=== PATIENT | male | born 1960 | race Caucasian/White ===

== ENCOUNTER 2022-10-07 07:51 | Emergency (ER) | payer SELFPAY ==
[2022-10-07] VITALS (8 sets, daily range): BP systolic 122–130; BP diastolic 66–81; PULSE 59–88; RESP 18; TEMP 35.9; O2SAT 97–100; BMI 23.6
--- NOTE | 2022-10-07 08:00 | ED.WEAKNESS ---
HPI - Weakness General Time Seen by Provider: 08:00 Date Seen: 10/07/22 Chief complaint: Weakness Stated complaint: pain all over Time Seen by Provider: 10/07/22 08:00 Source: patient and RN notes reviewed Mode of arrival: ambulatory Limitations: no limitations History of Present Illness HPI Narrative: Andrea is a very pleasant gentleman previously healthy who comes to the emergency room for evaluation regarding weakness and body pain. Patient had the onset of some left arm discomfort and weakness approximately a month ago. Since that time the weakness and discomfort has progressed to include his right arm and his legs. He notes that he can barely lift his arms up. 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 He can move his feet and ankles fine but has difficulty lifting his legs up. He has not had fevers chills or chills. He denies loss of appetite that is new. He states he takes Ritalin so he does not eat a lot. Even with this he denies any weight loss. He notes that he has discomfort at the base of his neck and upper thoracic spine. He denies chest pain difficulty breathing vomiting abdominal pain nausea. He has not lost control of his power or bladder. His pain is definitely worse when he tries to move. He has not taken anything for discomfort at this time. He has a sister with MS. He does admit to drinking 3-5 alcoholic drinks every day. He does not have a history of withdrawal if he does skip a day. He does not have a history of alcohol seizures. Denies any drug use. Does smoke cigarettes daily. Patient denies any recent trauma. Denies visual changes or double vision. Patient denies any symptoms of jaw claudication visual changes or headache. Related Data Home Medications Medication Instructions Recorded Confirmed methylphenidate HCl 20 mg tablet 20 mg PO 3XD 10/07/22 10/07/22 Previous Rx's Medication Instructions Recorded omeprazole 20 mg capsule,delayed 20 mg PO DAILY #30 caps 10/07/22 release prednisolone 5 mg tablet 15 mg (3 x 5 mg) PO DAILY #90 tabs 10/07/22 Allergies Allergy/AdvReac Type Severity Reaction Status Date / Time No Known Drug Allergies Allergy Verified 10/07/22 13:38 Review of Systems Status of ROS: Reports: 10 or more systems reviewed and unremarkable except as noted in History and below Narrative: Patient notes he is outside but has not noticed any tick bites. Const: Reports: fatigue; Denies: fever or chills Eyes: Denies: change in vision or blurry vision ENMT: Reports: neck pain; Denies: difficulty swallowing, hoarseness or nasal discharge Cardio: Denies: chest pain, palpitations, swelling of feet/ankles, lightheadedness or shortness of breath with exertion Resp: Denies: shortness of breath or cough GI: Denies: abdominal pain, nausea, vomiting, diarrhea or difficulty swallowing : Denies: painful urination, urinary frequency, urinary urgency or blood in urine Musculo: Reports: back pain, neck pain, extremity pain, joint pain, limited range of motion and muscle weakness; Denies: extremity swelling or joint swelling Integ/Breast: Denies: rash or redness Neuro: Reports: weakness in extremities; Denies: headache, numbness in extremities, dizziness or confusion Endo: Reports: fatigue Exam Narrative: Exam Narrative: Andrea is alert and oriented. EOM is full. Face symmetrical. Neck is supple. Palpation down the cervical spine yields no tenderness. Heart with a regular rate and rhythm. Lungs are clear bilaterally. Abdomen is soft nontender. Patient has difficulty with abduction of both upper extremities past 45?. He is weak with biceps flexion and extension. His security system analyst strength is improved in terms of strength verses proximal musculature. But still only 4/5. Lower extremities show full strength at the ankles but hip flexion is uncomfortable and 4/5 bilaterally. Const: Vital Signs, click to edit/add: Vital Signs - 24 hr 10/07/22 07:57 10/07/22 09:13 10/07/22 09:15 Temperature 96.7 F L Pulse Rate 76 73 Pulse Rate [Right Pulse Oximeter] 59 L Respiratory Rate 18 Blood Pressure 122/75 Blood Pressure [Ri ght Upper Arm] 123/79 Pulse Oximetry 100 98 100 Oxygen Delivery Me thod Room Air 10/07/22 09:39 10/07/22 09:41 10/07/22 09:45 Temperature Pulse Rate 82 70 78 Pulse Rate [Right Pulse Oximeter] Respiratory Rate Blood Pressure 126/81 Blood Pressure [Ri ght Upper Arm] Pulse Oximetry 97 98 98 Oxygen Delivery Me thod 10/07/22 10:00 10/07/22 10:02 Temperature Pulse Rate 88 87 Pulse Rate [Right Pulse Oximeter] Respiratory Rate Blood Pressure 130/66 Blood Pressure [Ri ght Upper Arm] Pulse Oximetry 100 98 Oxygen Delivery Me thod Documenting provider has reviewed patient's vital signs: yes Course Course Hospital Course: Differential diagnosis includes but is not limited to polymyalgia rheumatica, MS, vitamin deficiency, alcoholic induced neuropathy, MS, myositis, COVID, spinal cord compression or other viral illness. Will place IV give 1 L of normal saline. If creatinine acceptable will also use Toradol for discomfort. Will check CBC, comprehensive, CRP, sed rate, alcohol, thigh min, B12, urinalysis, drug screen. Will check head CT, cervical spine CT, chest x-ray, EKG. Will give multivitamin, thiamin, folic acid at this time given alcohol use. Initial pain control will be morphine 2 mg, Ativan 0.5 mg. Reevaluation(s) Reevaluation #1: Patient noted to have normal B12. His CRP is elevated at 4.4 and sed rate is 33. Initial chest x-ray is noted to have an irregularity over the 3rd rib. A CT of the chest is suggested and this is ordered. Patient is given thiamin, folic acid, multivitamin as well as dexamethasone 10 mg IV. 1 L of normal saline is also infused. Head and cervical spine CTs reassuring at this time. Reevaluation #2: Patient has been resting comfortably. Fortunately CT of the chest shows no abnormalities and the area of concern on initial x-ray is fibrosis. Vital Signs Vital signs: Initial Vital Signs Temperature 96.7 F L 10/07/22 07:57 Temperature Source Temporal Artery Scan 10/07/22 07:57 Pulse Rate 59 L 10/07/22 07:57 Respiratory Rate 18 10/07/22 07:57 Blood Pressure 123/79 10/07/22 07:57 Blood Pressure Mean 93 10/07/22 07:57 Blood Pressure Position Sitting 10/07/22 07:57 Pulse Oximetry 100 10/07/22 07:57 Oxygen Delivery Method Room Air 10/07/22 07:57 Vital Signs Temperature 96.7 F L 10/07/22 07:57 Pulse Rate 59 L 10/07/22 07:57 Respiratory Rate 18 10/07/22 07:57 Blood Pressure 123/79 10/07/22 07:57 Pulse Oximetry 100 10/07/22 07:57 Oxygen Delivery Method Room Air 10/07/22 07:57 Temperature 96.7 F L 10/07/22 07:57 Pulse Rate 87 10/07/22 10:02 Respiratory Rate 18 10/07/22 07:57 Blood Pressure 130/66 10/07/22 10:02 Pulse Oximetry 98 10/07/22 10:02 Oxygen Delivery Method Room Air 10/07/22 07:57 MDM - Weakness MDM Narrative Medical decision making narrative: 1. Polymyalgia rheumatica-patient has had pain worse in the morning when he 1st wakes up initially with his left shoulder and his right shoulder and now his groin and thighs. His symptoms are classic of polymyalgia rheumatica and certainly his CRP is elevated. He has no headache or visual changes or pain over his temporal artery. He is remarkably improved after being treated with dexamethasone. He was allowed to rest here and now he is able to move quite well. I had really not expected him to have such a remarkable recovery. He will continue on prednisone 15 mg daily per the up-to-date guidelines and follow-up with a physician at the [facility] which has been scheduled for him. During that time he is on prednisone would ask that he also start omeprazole 20 mg daily for stomach protection. 2. Daily alcohol use-patient has a normal B12 and is thigh min is pending as certainly 1 must consider an alcohol induced myositis. CK, vitamin-D, TSH had been ordered and unfortunately patient had departed and I was informed that there was not enough blood. Patient is instructed to decrease daily alcohol use and abstain if possible. He was given multivitamin, thigh min, folic acid in the ED. 3. Disposition-home at this time. Return for worsening symptoms. Patient was able to walk without difficulty move his arms. He is very happy that he is feeling better. Medical Records Attestation: I reviewed the patient's medical records. Lab Data Attestation: I reviewed the patient's lab results. Labs: Lab Results 10/07/22 10/07/22 10/07/22 Range/Units 08:34 13:36 Unknown WBC 11.02 H (4.50-11.00) K/uL RBC 4.25 L (4.30-5.90) m/uL Hgb 13.0 L (13.5-17.5) gm/dL Hct 39.5 (37.0-53.0) % MCV 93 (80-100) fL MCH 31 (26-34) pg MCHC 33 (32-36) gm/dL RDW Coeff of Noe 13.5 (11.5-15.5) % Plt Count 397 (140-440) K/uL Neut % (Auto) 76.1 H (42.0-72.0) % Lymph % (Auto) 15.5 L (20-44) % [place] % (Auto) 6.7 (0.0-11.0) % Eos % (Auto) 1.1 (0.0-7.0) % Baso % (Auto) 0.4 (0.0-3.0) % Neut # (Auto) 8.40 H (1.7-7.0) K/uL Lymph # (Auto) 1.70 (0.90-2.90) K/uL [place] # (Auto) 0.70 (0.00-0.90) K/UL Eos # (Auto) 0.10 (0.00-0.50) K/uL Baso # (Auto) 0.00 (0.00-0.30) K/uL Abs Immat Gran (auto) 0.00 (0.00-0.30) K/uL Imm/Tot Granulo (auto) 0.2 % ESR 33 H (2-15) mm/hr Sodium 139 (135-149) mmol/L Potassium 4.2 (3.6-5.1) mmol/L Chloride 105 (96-114) mmol/L Carbon Dioxide 25 (20-32) mmol/L Anion Gap 9 (7-15) mEq/L BUN 13 (7-30) mg/dL Creatinine 0.8 (0.5-1.5) mg/dL Estimated Creat Clear 77.57 Estimated GFR 101 ml/min Glucose 112 (60-115) mg/dL Total Bilirubin 0.4 (0.1-1.5) mg/dL AST 25 (12-35) U/L ALT 18 (4-50) U/L Alkaline Phosphatase 112 (40-150) U/L C-Reactive Protein 4.4 H (0.5-1.0) mg/dL Total Protein 7.2 (6.0-8.3) g/dL Albumin 4.0 (3.3-5.0) g/dL Vitamin B12 478 (243-894) pg/mL Urine Color Yellow (Yellow) Urine Appearance Slightly Cloudy A (Clear) Urine pH 8.5 (5.0-8.5) Ur Specific [place] 1.015 (1.000-1.030) Urine Protein Negative (Negative) Urine Glucose (UA) Negative (Negative) Urine Ketones 2+ A (Negative) Urine Blood Trace-intact A (Negative) Urine Nitrite Negative (Negative) Urine Bilirubin Negative (Negative) Urine Urobilinogen 1.0 (0.2-1.0) Ur Leukocyte Esterase Negative (Negative) Urine RBC 0-2 (0-2) Urine WBC 0-2 (0-5) Ur Squamous Epith Cells None (None-Few) Amorphous Sediment Many A (None) Urine Bacteria Few A (None) Urine Opiates Screen POSITIVE A (Negative) Ur Oxycodone Screen Negative (Negative) Urine Methadone Screen Negative (Negative) Ur Propoxyphene Screen Negative (Negative) Ur Barbiturates Screen Negative (Negative) U Tricyclic Antidepress Negative (Negative) Ur Phencyclidine Scrn Negative (Negative) Ur Amphetamines Screen Negative (Negative) U Methamphetamines Scrn Negative (Negative) U Benzodiazepines Scrn Negative (Negative) Urine Cocaine Screen Negative (Negative) U Marijuana (THC) Screen POSITIVE A (Negative) Ur Drug Screen Comment See Note Ethyl Alcohol < 0.01 L (0.01-0.03) % SARS-CoV-2 (PCR) Negative SARS-CoV-2 (Negative) Lab Acknowledgement Test Added Imaging Data Chest x-ray: Attestation: I have reviewed the pertinent imaging results. My impression: I do not note a widened mediastinum. Radiologist's impression: Right perihilar opacity and nonspecific irregular opacity superimposed upon the right anterior 3rd intercostal space in the peripheral right midlung, undetermined etiology/clinical significance. A nonemergent chest CT is recommended for further characterization of these nonspecific findings. CT scan - head: Attestation: I have reviewed the pertinent imaging results. My impression: No acute findings Radiologist's impression: here is no intra-axial or extra-axial fluid collection. There is no mass effect or midline shift. There is age-related cortical atrophy with mild sulcal widening and ex vacuo dilatation of the lateral ventricles. There are chronic small vessel disease changes in the subcortical and periventricular white matter without lost chan-white differentiation. The orbits and their contents are grossly within normal limits. The bony calvarium is grossly intact. The paranasal sinuses are clear. The mastoid air cells are well aerated. Impression: 1. Age-related changes of the brain without acute intracranial abnormality. Cervical spine CT: Attestation: I have reviewed the pertinent imaging results. My impression: Multilevel spondylosis without any evidence of lytic lesion. Radiologist's impression: The cervical vertebral body heights are grossly maintained. There is straightening of the normal cervical lordosis with mild anterolisthesis of C3 on C4. There is no displaced fracture or dislocation. There is extensive degenerative disc disease with disc height loss and marginal osteophyte formation at multiple levels with demonstration of large disc extrusions at the C4-5, C5-6 and C6-7 levels. There is [id number] spinal canal narrowing at these levels. There is moderate uncovertebral joint disease with moderate neural foraminal narrowing bilaterally. There is moderate to severe facet arthropathy. There is mild biapical pleural thickening. Impression: Moderate multilevel degenerative disc disease worst at the C4-5 through C6-C7 levels as described above. No evidence of displaced fracture. If there is concern for spinal cord pathology, underlying spinal canal and/or neural foraminal integrity, follow-up with MRI. CT scan - chest: Attestation: I have reviewed the pertinent imaging results. Radiologist's impression: Lungs and pleura: The findings described in the report of the earlier chest radiograph correspond to anterior segmental right upper lobe pleural based reticular opacities consistent with nonspecific minor fibrosis, not considered clinically significant. Similar findings consist with nonspecific minor fibrosis are noted as subpleural curvilinear band opacities in the dependent lower lobes bilaterally. No pleural effusions, pleural thickening, or pneumothorax. Heart and vasculature: Heart size is normal. Thoracic aorta and pulmonary artery are normal in caliber.An apparent filling defect within the proximal superior segmental left lower lobe pulmonary artery on the axial series (series 2; images 53, 54) is due to partial volume averaging (artifact). There is no filling defect in this vessel on the coronal reformatted series (see series 4; images 49-55). Lymph nodes/mediastinum: Calcified right hilar, subcarinal and right upper lobar nonenlarged lymph nodes are consistent with the sequelae of prior granulomatous disease. Chest wall: No masses. Upper abdomen: No acute findings. Hepatic and splenic calcified granulomas are noted distally. Focal fat is noted in the left hepatic lobe adjacent to the intersegmental fissure. Bones: Unremarkable for age. IMPRESSION: The pulmonary findings in the peripheral right midlung on the earlier chest radiograph performed a correspond to nonspecific minor fibrosis in the anterior segment of the right upper lobe, not considered clinically significant. No other acute/significant incidental findings. ECG Data Attestation: I personally reviewed and interpreted this ECG as follows: ECG interpretation date: 10/07/22 Interpretation: EKG by my read shows sinus rhythm at a rate of 63. No acute ST or T-wave changes are noted. Normal QT and CA intervals Discharge Plan Discharge Clinical Impression: Polymyalgia rheumatica, Proximal muscle weakness, Alcohol abuse, daily use Patient Disposition: Home, Self-Care Condition: Improved Instructions: Polymyalgia Rheumatica (ED) Additional Instructions: We will be treating you for 2 different things today. First we will continue steroids for treatment of presumed polymyalgia rheumatica. The prescription for this medicine was sent to your pharmacy. I would also like you to be on omeprazole for stomach protection. Limit or abstain from alcohol use. Return to the emergency room for recurrence or worsening symptoms. Follow up appointment is scheduled at the [facility] on 10/30 with a 3:15pm appointment time. If you have any questions or need to reschedule, please call [phone]. [facility] [address] [place] [address] Prescriptions: New omeprazole 20 mg capsule,delayed release(DR/EC) 20 mg PO DAILY Qty: 30 0RF prednisolone 5 mg tablet 15 mg PO DAILY Qty: 90 0RF No Action methylphenidate HCl 20 mg tablet 20 mg PO 3XD Stand Alone Forms: [employer] Info Instructions
--- NOTE | 2022-10-07 08:12 | CRLHL7_ITS ---
For Patients: As a result of the Century Cures Act, medical imaging exams and procedure reports are released immediately into your electronic medical record. You may view this report before your referring provider. If you have questions, please contact your health care provider. Indication: Over Pain, proximal muscle weakness Technique: Volumetric multidetector CT images of the cervical spine were obtained without the administration of IV contrast. Comparison: None available. Findings: The cervical vertebral body heights are grossly maintained. There is straightening of the normal cervical lordosis with mild anterolisthesis of C3 on C4. There is no displaced fracture or dislocation. There is extensive degenerative disc disease with disc height loss and marginal osteophyte formation at multiple levels with demonstration of large disc extrusions at the C4-5, C5-6 and C6-7 levels. There is [id number] spinal canal narrowing at these levels. There is moderate uncovertebral joint disease with moderate neural foraminal narrowing bilaterally. There is moderate to severe facet arthropathy. There is mild biapical pleural thickening. Impression: Moderate multilevel degenerative disc disease worst at the C4-5 through C6-C7 levels as described above. No evidence of displaced fracture. If there is concern for spinal cord pathology, underlying spinal canal and/or neural foraminal integrity, follow-up with MRI. Please note that all CT scans at this facility use dose modulation, iterative reconstruction, and/or weight-based dosing when appropriate to reduce radiation dose to as low as reasonably achievable. Dictated by Abdiel Sebastian MD @ 10/07/2022 9:22:59 AM (Electronically Signed)
--- NOTE | 2022-10-07 08:12 | CRLHL7_ITS ---
For Patients: As a result of the Century Cures Act, medical imaging exams and procedure reports are released immediately into your electronic medical record. You may view this report before your referring provider. If you have questions, please contact your health care provider. Indication: Over pain, proximal muscle weakness Technique: Volumetric multidetector CT images of the head were obtained without the administration of low osmolar intravenous contrast. Comparison: None available Findings: There is no intra-axial or extra-axial fluid collection. There is no mass effect or midline shift. There is age-related cortical atrophy with mild sulcal widening and ex vacuo dilatation of the lateral ventricles. There are chronic small vessel disease changes in the subcortical and periventricular white matter without lost chan-white differentiation. The orbits and their contents are grossly within normal limits. The bony calvarium is grossly intact. The paranasal sinuses are clear. The mastoid air cells are well aerated. Impression: 1. Age-related changes of the brain without acute intracranial abnormality. Please note that all CT scans at this facility use dose modulation, iterative reconstruction, and/or weight-based dosing when appropriate to reduce radiation dose to as low as reasonably achievable. Dictated by Abdiel Sebastian MD @ 10/07/2022 9:14:23 AM (Electronically Signed)
--- NOTE | 2022-10-07 08:17 | CRLHL7_ITS ---
For Patients: As a result of the Cures Act, medical imaging exams and procedure reports are released immediately into your electronic medical record. You may view this report before your referring provider. If you have questions, please contact your health care provider. INDICATION: ALL OVER PAIN. PROXIMAL MUSCLE WEAKNESS TECHNIQUE: Chest 1 views. COMPARISON: None available for direct comparison at the time of dictation. Reference made to a prior report dated 12/04/2019. FINDINGS: Cardiovasculature and mediastinum: Heart size and vasculature are normal in caliber and appearance. Lungs and pleural spaces: Right perihilar opacity and nonspecific irregular opacity superimposed upon the right anterior 3rd intercostal space in the peripheral right midlung, undetermined etiology/clinical significance. A nonemergent chest CT is recommended for further characterization of these nonspecific findings. Bones and soft tissues: No significant findings. IMPRESSION: Right perihilar opacity and nonspecific irregular opacity superimposed upon the right anterior 3rd intercostal space in the peripheral right midlung, undetermined etiology/clinical significance. A nonemergent chest CT is recommended for further characterization of these nonspecific findings. Recommendation: Noncontrast chest CT. Dictated by Erick Mac MD @ 10/07/2022 9:30:12 AM (Electronically Signed)
[2022-10-07] MEDS: 0.9 % SODIUM CHLORIDE 1000 ml 1,000 ML IV (08:34)
[2022-10-07 08:51] LABS: Basophils Percent Auto 0.4 % (0.0-3.0); Eosinophils Percent Auto 1.1 % (0.0-7.0); Hematocrit 39.5 % (37.0-53.0); Immature Granulocytes Pct Auto 0.2 %; Lymphocytes Percent Auto 15.5 % (20-44); Mean Corpuscular HGB Conc 33 gm/dL (32-36); Mean Corpuscular Hemoglobin 31 pg (26-34); Mean Corpuscular Volume 93 fL (80-100); Monocytes Percent Auto 6.7 % (0.0-11.0); Neutrophils Percent Auto 76.1 % (42.0-72.0); Platelet Count* 397 K/uL (140-440); RDW Coefficient of Variation % 13.5 % (11.5-15.5); Red Blood Count 4.25 m/uL (4.30-5.90); White Blood Count* 11.02 K/uL (4.50-11.00)
[2022-10-07 08:55] LABS: Slide Review Reflex No
[2022-10-07] MEDS: LORazepam 2 MG/ML inj 0.5 MG IVP (08:56)
[2022-10-07] MEDS: MORPHINE 2 MG/ML inj IVP (08:58)
[2022-10-07] MEDS: THIAMINE 100 MG TABLET PO (08:59)
[2022-10-07] MEDS: MULTIVITAMIN/MINERALS 1 TABLET 1 TAB PO (08:59)
[2022-10-07] MEDS: FOLIC ACID 1 MG TABLET PO (08:59)
[2022-10-07 09:04] LABS: Chloride* 105 mmol/L (96-114); Sodium* 139 mmol/L (135-149)
[2022-10-07 09:05] LABS: Potassium* 4.2 mmol/L (3.6-5.1)
[2022-10-07 09:06] LABS: Creatinine* 0.8 mg/dL (0.5-1.5); Est. Creatinine Clearance* 77.57; Estimated Glomerular Filt Rate 101 ml/min
[2022-10-07 09:07] LABS: Alanine Aminotransferase* 18 U/L (4-50); Alkaline Phosphatase* 112 U/L (40-150); Aspartate Amino Transferase* 25 U/L (12-35); Bilirubin Total* 0.4 mg/dL (0.1-1.5); Blood Urea Nitrogen* 13 mg/dL (7-30); Carbon Dioxide* 25 mmol/L (20-32); Total Protein* 7.2 g/dL (6.0-8.3)
[2022-10-07 09:08] LABS: Glucose* 112 mg/dL (60-115)
[2022-10-07 09:10] LABS: C Reactive Protein* 4.4 mg/dL (0.5-1.0)
[2022-10-07 09:27] LABS: Ethanol* < 0.01 % (0.01-0.03)
[2022-10-07 09:33] LABS: Erythrocyte SedimentationRate* 33 mm/hr (2-15)
[2022-10-07 09:46] LABS: Appearance Urine Slightly Cloudy (Clear); Bilirubin Urine Negative (Negative); Blood Urine Trace-intact (Negative); Color Urine Yellow (Yellow); Glucose Urine Negative (Negative); Ketones Urine 2+ (Negative); Leukocyte Esterase Urine Negative (Negative); Nitrite Urine Negative (Negative); Protein Urine Negative (Negative); Specific Gravity Urine 1.015 (1.000-1.030); pH Urine 8.5 (5.0-8.5)
[2022-10-07 09:57] LABS: Vitamin B12* 478 pg/mL (243-894)
[2022-10-07 10:01] LABS: SARS PCR* Negative SARS-CoV-2 (Negative)
--- NOTE | 2022-10-07 10:02 | CRLHL7_ITS ---
For Patients: As a result of the Century Cures Act, medical imaging exams and procedure reports are released immediately into your electronic medical record. You may view this report before your referring provider. If you have questions, please contact your health care provider. INDICATION: Abnormal chest radiograph. TECHNIQUE: CT chest was acquired with 75 cc Isovue 370 IV contrast. COMPARISON: None. FINDINGS: Lungs and pleura: The findings described in the report of the earlier chest radiograph correspond to anterior segmental right upper lobe pleural based reticular opacities consistent with nonspecific minor fibrosis, not considered clinically significant. Similar findings consist with nonspecific minor fibrosis are noted as subpleural curvilinear band opacities in the dependent lower lobes bilaterally. No pleural effusions, pleural thickening, or pneumothorax. Heart and vasculature: Heart size is normal. Thoracic aorta and pulmonary artery are normal in caliber.An apparent filling defect within the proximal superior segmental left lower lobe pulmonary artery on the axial series (series 2; images 53, 54) is due to partial volume averaging (artifact). There is no filling defect in this vessel on the coronal reformatted series (see series 4; images 49-55). Lymph nodes/mediastinum: Calcified right hilar, subcarinal and right upper lobar nonenlarged lymph nodes are consistent with the sequelae of prior granulomatous disease. Chest wall: No masses. Upper abdomen: No acute findings. Hepatic and splenic calcified granulomas are noted distally. Focal fat is noted in the left hepatic lobe adjacent to the intersegmental fissure. Bones: Unremarkable for age. IMPRESSION: The pulmonary findings in the peripheral right midlung on the earlier chest radiograph performed a correspond to nonspecific minor fibrosis in the anterior segment of the right upper lobe, not considered clinically significant. No other acute/significant incidental findings. Please note that all CT scans at this facility use dose modulation, iterative reconstruction, and/or weight-based dosing when appropriate to reduce radiation dose to as low as reasonably achievable. Dictated by Erick Mac MD @ 10/07/2022 11:11:15 AM (Electronically Signed)
[2022-10-07 10:08] LABS: Amphetamine Screen Urine Negative (Negative); Barbiturate Screen Urine Negative (Negative); Benzodiazepines Screen Urine Negative (Negative); Cannabinoid Screen Urine POSITIVE (Negative); Cocaine Screen Urine Negative (Negative); Methadone Screen Urine Negative (Negative); Methamphetamines Screen Urine Negative (Negative); Opiate Screen Urine POSITIVE (Negative); Oxycodone Screen Urine Negative (Negative); Phencyclidine Screen Urine Negative (Negative); Tricyclic Antidepressant Urine Negative (Negative)
[2022-10-07 10:17] LABS: Bacteria Urine Few; RBC Urine 0-2 (0-2); WBC Urine 0-2 (0-5)
[2022-10-07 10:18] LABS: Amorphous Sediment Urine Many
[2022-10-07] MEDS: dexAMETHasone 10 MG/ML inj IVP (10:51)
[2022-10-07 11:17] LABS: Anion Gap 9 mEq/L (7-15)
[2022-10-09 02:52] LABS: Rheumatoid Factor <10 IU/mL (0-14)
[2022-10-10 19:33] LABS: Calcium* 10.6 mg/dL (8.4-10.6)
[2022-10-11 09:01] LABS: Anaplasma phagocyt PCR Not Detected; Babesia microti by PCR Not Detected; Babesia species by PCR Not Detected; Ehrlichia chaffeensis by PCR Not Detected; Ehrlichia ewingii/canis by PCR Not Detected; Ehrlichia muris-like by PCR Not Detected
--- NOTE | 2022-10-22 10:50 | ED.NURSE ---
Pharmacist at [facility] called to clarify Rx: Prednisolone 15mg daily. Per MD dictation, Pt was to received PredniSONE 15mg daily. Pharmacist updated.
== END 2022-10-07 14:17 | disposition home or self-care (01) ==
PROVIDERS: Emergency Provider Family Medicine
DX: R53.1 Weakness (principal); F10.10 Alcohol abuse, uncomplicated; M35.3 Polymyalgia rheumatica
CPT/HCPCS: 36415; 70450; 71045; 71260; 72125; 80053; 80306; 81001; 82077; 82607; 84425; 85025; 85651; 86140; 86200; 86431; 86618; 87086; 87635; 87798; 93005; 96374; 96375; 99284; 99285; A9153; A9270; J1100; J2060; J2270; J7030; Q9967

== ENCOUNTER 2023-03-07 11:45 | Outpatient (CLI) | payer OTHER, SELFPAY ==
--- NOTE | 2023-03-07 13:00 | CRLHL7_ITS ---
For Patients: As a result of the 21st Century Cures Act, medical imaging exams and procedure reports are released immediately into your electronic medical record. You may view this report before your referring provider. If you have questions, please contact your health care provider. EXAM: MRI OF THE RIGHT SHOULDER, WITHOUT CONTRAST CLINICAL INDICATION: Right shoulder pain. COMPARISON IMAGING STUDIES: 02/27/2023 radiographs. TECHNICAL: Axial, sagittal oblique and coronal oblique T1, PD, PD FS and T2-weighted images. Shoulder surface coil. FINDINGS: ROTATOR CUFF TENDONS MUSCLES AND DELTOID: Supraspinatus: Diffuse increased signal and thickening in the supraspinatus tendon consistent with moderate tendinopathy. No tendon tear. No muscle atrophy or edema. Infraspinatus: 0.3 cm calcification in the infraspinatus tendon. Mild increased signal in the infraspinatus tendon. Findings consistent with calcific tendinopathy. No tendon tear. No muscle atrophy or edema. Subscapularis: Low-grade partial-thickness intrasubstance tear of the distal superior subscapularis tendon. Mild to moderate tendinopathy. No muscle atrophy or edema. Teres Minor: No tendinosis, tendon tearing, muscle atrophy or muscle edema. Deltoid: No muscle atrophy or edema. - BICEPS TENDON, LONG HEAD: Partial-thickness longitudinal split tear with mild to moderate tendinopathy and medial subluxation including extending into the subscapularis tendon tear. - CORACOACROMIAL ARCH: Acromial Morphology: Type 2 acromial morphology. No abnormal lateral or anterior downward sloping of the acromion. No significant subacromial spur. No os acromiale. Acromiohumeral Interval: No narrowing of the acromiohumeral interval. No abnormal thickening of the coracoacromial ligament. Coracohumeral Interval: No narrowing of the coracohumeral interval. - ACROMIOCLAVICULAR JOINT REGION: AC Joint: Advanced arthrosis. Ligaments: The coracoclavicular ligaments are intact. - BURSAE: Subacromial-Subdeltoid: Small amount of fluid in the subacromial subdeltoid bursa consistent with bursitis. Subcoracoid: No abnormal bursal edema, thickening or bursal fluid. - GLENOHUMERAL JOINT: Labrum: There is a tear of the superior labrum posterior to the biceps labral anchor complex extending into the superior aspect of the posterior labrum (12-10 o`clock). 0.6 centimeter paralabral cyst at the posterior and superior labral junction. Humeral Head Articular Cartilage: No focal cartilage defect or underlying subchondral marrow changes. Glenoid Articular Cartilage: No focal cartilage defect or underlying subchondral marrow changes. Effusion: Small joint effusion. No synovitis or loose body. Alignment: Maintained. Capsule: No capsular edema or abnormal capsular thickening. - OSSEOUS STRUCTURES: No fracture, marrow edema or marrow replacement process. - OTHER FINDINGS: No axillary adenopathy or mass. IMPRESSION: 1. Small partial thickness intrasubstance tear of the distal superior subscapularis tendon with tendinopathy. 2. Partial-thickness longitudinal split tear, tendinopathy and medial subluxation of the long head of the biceps tendon. 3. Calcific infraspinatus tendinopathy. 4. Supraspinatus tendinopathy. 5. Tear of the superior and posterior labrum with small paralabral cyst. 6. Mild subacromial subdeltoid bursitis. 7. Advanced arthropathy of the acromioclavicular joint. Dictated by Crow Thao MD @ 03/10/2023 11:34:03 AM (Electronically Signed)
--- NOTE | 2023-03-07 13:45 | CRLHL7_ITS ---
For Patients: As a result of the Century Cures Act, medical imaging exams and procedure reports are released immediately into your electronic medical record. You may view this report before your referring provider. If you have questions, please contact your health care provider. INDICATION: Radiculopathy. TECHNIQUE: Multiplanar multisequence noncontrast MR images of the cervical spine. COMPARISON: None. FINDINGS: Mild rightward cervical curvature. Mild reversal of the cervical lordosis. No acute fracture. No T1 hypointense lesions. The cervical cord is normal in signal intensity. C2-3: Shallow posterior disc osteophyte complex. Dzgg-rq-siabbdur facet arthropathy. No spinal canal or neural foraminal narrowing. C3-4: Grade 1 anterolisthesis. Drww-onzrelj-zaza-right uncinate spurring. Advanced left and mild right facet arthropathy. Edema in the left articulating facets. No spinal canal narrowing. Moderate left without right neural foraminal narrowing. C4-5: Zreb-ky-capioknv disc height loss. Posterior disc bulge. Bilateral uncinate spurring. Mild facet arthropathy. Mild spinal canal narrowing. Moderate right and wdxq-tk-ytzaciln left neural foraminal narrowing. C5-6: Moderately advanced disc height loss. Posterior disc osteophyte complex. Bilateral uncinate spurring. Mild facet arthropathy. Mild spinal canal narrowing. Moderately severe right and moderate left neural foraminal stenosis. C6-7: Moderately advanced disc height loss. Posterior disc osteophyte complex. Bilateral uncinate spurring. Mild facet arthropathy. Mild spinal canal narrowing. Moderate bilateral neural foramina narrowing. C7-T1: No spinal canal or neural foraminal narrowing. IMPRESSION: 1. Multilevel cervical spondylosis without spinal canal stenosis. 2. At C3-4, moderate left neural foraminal stenosis. Edema in the left articulating facets is most compatible with a stress response. 3. At C4-5, moderate right and yrlm-mb-uymyhlul left neural foraminal narrowing. 4. At C5-6, moderately severe right and moderate left neural foraminal stenosis. 5. At C6-7, moderate bilateral neural foraminal narrowing. Dictated by Graham Rinaldi MD @ 03/09/2023 8:02:09 AM (Electronically Signed)
== END 2023-03-07 11:46 | disposition home or self-care (01) ==
LOC: MRI 11:48
PROVIDERS: Visit Provider Orthopaedic Surgery
DX: M54.12 Radiculopathy, cervical region (principal); M47.892 Other spondylosis, cervical region; M48.02 Spinal stenosis, cervical region; M50.223 Other cervical disc displacement at C6-C7 level; M25.511 Pain in right shoulder; S43.431A Superior glenoid labrum lesion of right shoulder, initial encounter; M75.51 Bursitis of right shoulder; M75.101 Unspecified rotator cuff tear or rupture of right shoulder, not specified as traumatic
CPT/HCPCS: 72141; 73221